=== PATIENT | female | born 1980 | race Caucasian/White ===

== ENCOUNTER → 2016-11-05 | Outpatient (CLI) | payer SELFPAY | END | disposition home or self-care (01) | LOC: EDBD 14:20 → RAD.S 14:20 | DX: N90.89 Other specified noninflammatory disorders of vulva and perineum (principal) ==

== ENCOUNTER → 2016-11-21 | Outpatient (CLI) | payer SELFPAY | END | disposition home or self-care (01) | LOC: RAD.S 13:51 → EDBD 14:00 → RAD.S 14:00 | DX: N90.89 Other specified noninflammatory disorders of vulva and perineum (principal) ==

== ENCOUNTER → 2016-11-27 | Outpatient (CLI) | payer SELFPAY | END | disposition home or self-care (01) | LOC: CARD 14:00 | DX: Z01.818 Encounter for other preprocedural examination (principal); K40.90 Unilateral inguinal hernia, without obstruction or gangrene, not specified as recurrent; M41.9 Scoliosis, unspecified ==

== ENCOUNTER 2017-01-13 09:43 | Day surgery (SDC) | payer SELFPAY ==
[~2017-01-13] VITALS: Ht 167.6 cm; Wt 70.0 kg
--- NOTE | 2017-02-10 07:03 | OR ---
ADMIT: 01/13/2017 RM/LOC: [facility] [id number] [address] [id number] JARED NIEVES [address] [place] [address] Operative/Delivery Room Report SEX: F AGE: 37 : 10/30/1979 SURGERY DATE: 01/13/2017 SURGEON: Ede Witt MD PREOPERATIVE DIAGNOSIS: Right-sided inguinal hernia. POSTOPERATIVE DIAGNOSIS: A large right indirect inguinal hernia. APPLIQUER ZIGZAG: YEIMY Wan ANESTHESIA: General endotracheal with the addition of Marcaine in the wounds postprocedure. PROCEDURE PERFORMED: Open repair of large indirect right inguinal hernia. DESCRIPTION OF PROCEDURE: After appropriate informed consent was obtained, the patient was brought to the operating room. General endotracheal anesthesia was induced. Her right inguinal space was prepped and draped in a sterile fashion. Incision was made in the right inguinal space with a #10 blade, carried deep with cautery down through the Roberto's layer directly onto the external oblique fascia. External oblique was opened sharply. The round ligament and hernia sac were dissected free from the inguinal floor. This was amputated at the distal level of the hernia sac, amputated across the round ligament. Dissection was then continued up to the level of the internal ring. The epigastric vessels were easily identified. She had a pretty large defect. I was able to twist the round ligament and hernia sac together. This was ligated with a #1 PDS suture in a suture ligature fashion. An additional #1 PDS tie was used to further secure the sac. The sac was then amputated along with the round ligament at the level of the internal ring. In doing so, interestingly, one of her tubal ligation clips came out through the hernia sac. Some of the fallopian tube also appeared to have been pulled up into this hernia sac. The end of the fallopian tube was cauterized and the stump ADMIT: 01/13/2017 RM/LOC: [facility] [place]#: [id number] [place], [place] [address] JARED NIEVES [address] [place] [address] Operative/Delivery Room Report SEX: F AGE: 37 : 10/30/1979 of the sac was allowed to retract intra-abdominally. I selected a 3 x 6 Prolene mesh. This was cut into a sheet to fit over the inguinal floor. The mesh was tacked medially to pubic tubercle with 0 PDS suture inferiorly to shelving edge, cephalad to transversalis fascia. The end of the mesh was then tucked underneath the external oblique out laterally. This laid nice and flat over the inguinal floor. The external oblique fascia was then closed with a running 0 PDS suture. The wound was infiltrated with Marcaine and then the wound was closed with 3-0 Vicryl in the Roberto's layer, 3-0 Vicryl in dermal layer, and running 4-0 Monocryl in the subcuticular layer. Sterile dressings were applied. The patient tolerated the procedure well and was taken to the recovery room in stable condition. Dewayne Razo assisted in this entire procedure. His help was necessary for retraction. Ede Witt MD/ bernardo JOB #: [id number] CC: Ede Witt, Attending Physician Danuta Issa, Family Physician
== END 2017-01-13 16:03 | disposition home or self-care (01) ==
LOC: SSS 09:43
PROC: 0YQ50ZZ Repair Right Inguinal Region, Open Approach (ICD-10-PCS; principal; 2017-01-13)
DX: K40.90 Unilateral inguinal hernia, without obstruction or gangrene, not specified as recurrent (principal); Z98.51 Tubal ligation status